=== PATIENT | male | born 1980 | race Caucasian/White ===

== ENCOUNTER 2018-10-15 11:16 | Emergency (ER) | payer SELFPAY ==
[~2018-10-15] VITALS: Ht 170.2 cm; Wt 69.9 kg
[2018-10-15 11:31] VITALS: Ht 170.2 cm; Wt 69.9 kg
[2018-10-15 12:43] VITALS: BP 130/75
== END 2018-10-15 12:43 | disposition home or self-care (01) ==
LOC: ED 11:16
DX: L02.31 Cutaneous abscess of buttock (principal)
CPT/HCPCS: 90715; J2001

== ENCOUNTER 2018-10-18 05:10 | Emergency (ER) | payer SELFPAY ==
[~2018-10-18] VITALS: Ht 170.2 cm; Wt 72.3 kg
[2018-10-18 05:15] VITALS: Ht 170.2 cm; Wt 72.3 kg
[2018-10-18 06:34] VITALS: BP 132/78
== END 2018-10-18 06:34 | disposition home or self-care (01) ==
LOC: ED 05:10
DX: L02.31 Cutaneous abscess of buttock (principal); J45.909 Unspecified asthma, uncomplicated